=== PATIENT | female | born 1975 | race Hispanic/Latino ===

== ENCOUNTER 2019-03-03 14:16 | Emergency (ER) | payer SELFPAY ==
--- NOTE | 2019-03-03 15:04 | RAD ---
EXAM: Chest one view: HISTORY: Chest pain COMPARISON: None FINDINGS: Heart size: Within normal limits. Lungs: Clear of acute process. No evidence for pneumonia, pleural effusion, acute edema, or pneumothorax, or other significant acute process. IMPRESSION: No significant acute intrathoracic disease.
--- NOTE | 2019-03-03 15:08 | RAD ---
Exam: Lumbar spine 2 views: HISTORY: Low back pain FINDINGS: AP and lateral views of the lumbar spine demonstrate a grade 2 spondylolisthesis of L5 on S1 with katy ateral pars defects. Disc spaces are otherwise adequately preserved. No acute fracture. IMPRESSION: Probable grade 2 spondylolisthesis with bilateral pars defects at L5-S1. Consider follow-up standing flexion and extension views to evaluate for potential instability. No oth er significant acute process.
--- NOTE | 2019-03-03 15:11 | CT ---
EXAM: Brain CTWithout contrast: HISTORY: Headache COMPARISON: None FINDINGS: No focal mass or midline shift. No intra or extra-axial hemorrhage. Sinuses and mastoids are clear of acute process. IMPRESSION: No mass or bleed or other significant acute intracranial process.
[2019-03-03 15:21] LABS: Bilirubin Negative (Negative); Blood, Urine Moderate (Negative); Glucose, Urine (Dipstick) Negative (Negative); Leukocyte Small (Negative); Nitrite Negative (Negative); Protein, Urine (Dipstick) Negative (Neg-Trace); Urobilinogen 0.2 mg/dL (Less than 2)
[2019-03-03 15:22] LABS: Clarity Slightly Cloudy (Clear)
[2019-03-03 15:23] LABS: Pregnancy Test - Urine (BHCG) Negative (Negative); Pregu Control Background? CLEAR/WHITE (CLR/WHITE); Pregu Control Bar Appear? YES (CONTROL BAR); Specific Gravity 1.015 (1.002-1.036)
[2019-03-03 15:25] LABS: Bacteria/HPF Rare-Few HPF (None Seen)
[2019-03-03 15:39] LABS: #Basophils 0.1 thou/uL (0.0-0.2); #Eosinphils 0.2 thou/uL (0.0-0.7); #Lymphocytes 2.2 thou/uL (1.20-3.40); #Monocytes 0.4 thou/uL (0.11-0.59); #Neutrophils 4.4 thou/uL (1.40-6.50); %Basophils 1.2 % (0.0-1.0); %Eosinophils 3.3 % (0.0-10.0); %Lymphocytes 29.6 % (21.0-51.0); %Monocytes 5.7 % (0.0-10.0); %Neutrophils 60.2 % (42.0-75.0); Hemoglobin 12.1 g/dL (12.0-16.0); Mean Corpuscular HGB CONC 31.8 g/dL (32.0-36.0); Mean Corpuscular Hemoglobin 28.2 pg (27.0-31.0); Mean Corpuscular Volume 88.6 fL (78.0-98.0); Mean Platelet Volume 6.7 fL (7.4-10.4); Platelet Count 315 thou/uL (130-400); RBC Distribution Width 12.6 % (11.5-14.5); Red Blood Cell (RBC) Count 4.28 mill/uL (4.20-5.40); White Blood Cell (WBC) Count 7.3 thou/uL (4.8-10.8)
[2019-03-03 15:55] LABS: ALT (SGPT) 9 U/L (8-55); AST (SGOT) 21 U/L (5-34); Albumin 4.2 g/dL (3.5-5.0); Alkaline Phosphatase 64 U/L (40-150); Anion Gap 13 mmol/L (10-20); BUN (Urea Nitrogen) 12 mg/dL (7.0-18.7); Bilirubin, Total 0.3 mg/dL (0.2-1.2); CK (CPK) 95 U/L (29-168); CRP (Inflammatory) Less than 0.50 mg/dL (= or < 0.5); Calc. Creatinine Clearance 0 mL/min (70-130); Carbon Dioxide 26 mmol/L (22-29); Chloride 106 mmol/L (98-107); Estimated GFR-MDRD 74; Globulin 3.4 g/dL (2.4-3.5); Glucose 92 mg/dL (70-105); Lipase 32 U/L (8-78); Potassium 3.5 mmol/L (3.5-5.1); Protein, Total 7.6 g/dL (6.0-8.3); Sodium 141 mmol/L (136-145)
[2019-03-03] MEDS ORDERED: Ketorolac Tromethamine 30 MG/ML VIAL ONE (16:40)
[2019-03-03] MEDS ORDERED: Ciprofloxacin 500 MG TAB ONE (16:40)
[2019-03-03] MEDS ORDERED: Cyclobenzaprine 10 MG TAB ONE (16:44)
== END 2019-03-03 17:15 | disposition home or self-care (01) ==
LOC: MADERS 14:16
DX: G43.919 Migraine, unspecified, intractable, without status migrainosus (principal); N30.90 Cystitis, unspecified without hematuria; M62.838 Other muscle spasm
CPT/HCPCS: 70450; 71045; 72100; 80053; 81003; 81015; 81025; 82150; 82550; 83690; 84484; 85025; 86140; 93005; 96372; J1885

== ENCOUNTER 2021-06-18 01:06 | Emergency (ER) | payer SELFPAY ==
[2021-06-18] MEDS ORDERED: Ibuprofen 800 MG TAB ONE (03:40)
== END 2021-06-18 03:55 | disposition home or self-care (01) ==
LOC: MADERS 01:06
DX: S29.012A Strain of muscle and tendon of back wall of thorax, initial encounter (principal)
CPT/HCPCS: 99283

== ENCOUNTER 2024-05-04 18:24 | Emergency (ER) | payer SELFPAY ==
[2024-05-04] MEDS ORDERED: Metoclopramide HCl 10 MG (2 mL) VIAL ONE (18:46)
[2024-05-04] MEDS ORDERED: Dexamethasone 10 MG/ML VIAL ONE (18:46)
[2024-05-04] MEDS ORDERED: Ketorolac Tromethamine 30 MG (1 mL) VIAL ONE (18:46)
[2024-05-04] MEDS ORDERED: Sodium Chloride 0.9% 1,000 ML ONE (18:46)
[2024-05-04 19:12] LABS: #Basophils 0.1 thou/uL (0.0-0.2); #Eosinophils 0.4 thou/uL (0.0-0.7); #Monocytes 0.4 thou/uL (0.11-0.59); #Neutrophils 5.9 thou/uL (1.40-6.50); %Basophils 0.7 % (0.0-1.0); %Eosinophils 4.3 % (0.0-10.0); %Monocytes 4.9 % (0.0-10.0); %Neutrophils 67.2 % (42.0-75.0); Hematocrit 35.7 % (36.0-47.0); Hemoglobin 11.5 g/dL (12.0-16.0); Mean Corpuscular HGB CONC 32.3 g/dL (32.0-36.0); Mean Corpuscular Hemoglobin 28.1 pg (27.0-31.0); Mean Corpuscular Volume 86.8 fl (78.0-98.0); Mean Platelet Volume 7.1 fL (7.4-10.4); Platelet Count 362 10x3/uL (130-400); RBC Distribution Width 12.6 % (11.5-14.5); Red Blood Cell (RBC) Count 4.11 mill/uL (4.20-5.40); White Blood Cell (WBC) Count 8.9 10x3/uL (4.8-10.8)
[2024-05-04 19:16] LABS: BHCG - Serum Negative (NEGATIVE); Pregs Control Background? CLEAR/WHITE (CLR/WHITE); Pregs Control Bar Appear? YES (CONTROL BAR)
[2024-05-04 19:26] LABS: ALT (SGPT) 16 U/L (8-55); AST (SGOT) 23 U/L (5-34); Albumin 3.8 g/dL (3.5-5.0); Alkaline Phosphatase 77 U/L (40-110); Anion Gap 15 mmol/L (10-20); BUN (Urea Nitrogen) 15 mg/dL (7.0-18.7); Bilirubin, Total Less than 0.2 mg/dL (0.2-1.2); Calc. Creatinine Clearance 0 mL/min (70-130); Calcium 9.1 mg/dL (7.8-10.44); Carbon Dioxide 25 mmol/L (22-29); Chloride 106 mmol/L (98-107); Estimated GFR 73; Globulin 3.7 g/dL (2.4-3.5); Glucose 122 mg/dL (70-105); Potassium 3.9 mmol/L (3.5-5.1); Protein, Total 7.5 g/dL (6.0-8.3); Sodium 142 mmol/L (136-145)
== END 2024-05-04 20:45 | disposition home or self-care (01) ==
LOC: MADERS 18:24
DX: R51.9 Headache, unspecified (principal)
CPT/HCPCS: 80053; 84703; 85025; 96374; 96375; J1100; J1885; J2765; J7030